=== PATIENT | male | born 1985 | race Caucasian/White ===

== ENCOUNTER 2020-01-30 12:46 | Emergency (ER) | payer OTHER ==
[~2020-01-30] VITALS: Ht 180.3 cm; Wt 98.0 kg
[2020-01-30] MEDS ORDERED: OMEPRAZOLE20 MG PO (12:59)
--- NOTE | 2020-01-30 18:38 | EKG ---
[facility] [address] [facility] [place], [place] [address] Signed Sinus tachycardia Otherwise normal ECG No previous ECGs available Confirmed by JERRY LANCASTER MD ([id number] on 01/30/2020 6:38:03 PM Electronically Signed By: JERRY LANCASTER MD 01/30/20 1838 PATIENT NAME: ELODIA CINTRON Electrocardiogram DATE OF : 85 PHYSICIAN: JERRY LANCASTER MD REPORT #: [id number] REPORT IS CONFIDENTIAL AND NOT TO BE RELEASED WITHOUT AUTHORIZATION
== END 2020-01-30 15:06 | disposition home or self-care (01) ==
LOC: ED 12:46
DX: R07.89 Other chest pain (principal); Z88.0 Allergy status to penicillin; Z88.1 Allergy status to other antibiotic agents; Z79.899 Other long term (current) drug therapy
CPT/HCPCS: 71045; 80053; 83735; 84443; 84484; 85025; 85379; 93005; 93010; 96374; 99285-25; J1885